=== PATIENT | female | born 1980 | race Caucasian/White ===

== ENCOUNTER 2017-09-06 14:22 | Emergency (ER) | payer OTHER ==
--- NOTE | 2017-09-06 15:15 | UC ---
Throat Pain/Nasal Bg HPI - HPI Summary HPI Summary: 37 y/o female presents to the urgent care c/o sore throat and productive cough, sinus congestion and pain for the past 10 days. Pt reports symptoms started with common cold symptoms, however sore throat became worse for the past 2 day. Sinus congestion has a green nasal discharge, associated with CARTER and postnasal drip. Pain with swallowing is 8/10. Pt has been with chills, but denies fever, abdominal pain, chest pain, N/V/D. She has been taking Nyquill and Dayquill to alleviate symptoms. - History of Current Complaint Stated Complaint: COUGH/ST Time Seen by Provider: 09/06/17 15:14 Hx Obtained From: Patient ?: No Onset/Duration: Gradual Onset, Lasting Weeks - 10 days, Still Present, Worse Since - 2 days Severity: Moderate Pain Intensity: 8 Pain Scale Used: 0-10 Numeric Cough: Sputum Appears - green Associated Signs & Symptoms: Positive: Sinus Discomfort, Nasal Discharge - Epiglottits Risk Factors Epiglottis Risk Factors: Negative - Allergies/Home Medications Allergies/Adverse Reactions: Allergies Allergy/AdvReac Type Severity Reaction Status Date / Time Penicillins Allergy Hives Verified 09/06/17 15:30 Home Medications: Home Medications Dextromethorphan-Phenylephrine [Daytime Multi-Symptom Col 10-5-325 mg/15Ml] 1 liq PO DAILY PRN 09/06/17 [History Confirmed 09/06/17] PMH/Surg Hx/FS Hx/Imm Hx Previously Healthy: Yes - Pt denies PMHX - Surgical History Surgery Procedure, Year, and Place: B/L tonsilectomy - Family History Known Family History: Positive: Diabetes - Social History Occupation: Employed Full-time Lives: With Family Review of Systems Constitutional: Negative Skin: Negative Eyes: Negative ENT: Sore Throat, Nasal Discharge, Sinus Congestion, Sinus Pain/Tenderness Respiratory: Cough - productive Cardiovascular: Negative Gastrointestinal: Negative Genitourinary: Negative Motor: Negative Neurovascular: Negative Musculoskeletal: Negative Neurological: Headache Psychological: Negative Is Patient Immunocompromised?: No All Other Systems Reviewed And Are Negative: Yes Physical Exam Triage Information Reviewed: Yes - Additional Comments VITAL SIGNS: Reviewed. GENERAL: Patient is a well developed and nourished female who is sitting comfortable in the examining table. Patient is not in any acute respiratory distress. HEAD AND FACE: No signs of trauma. No ecchymosis, hematomas or skull depressions. Positive maxillary and frontal sinus tenderness on palpation with yellowish nasal discharge. EYES: PERRLA, EOMI x 2, No injected conjunctiva, no nystagmus. No photophobia. EARS: Hearing grossly intact. Ear canals and tympanic membranes are within normal limits. MOUTH: Positive pharynx with erythema, no exudates, mild palatal petechiae. no tonsils. Uvula in midline with erythema. Nose: edematous, erythematous nasal mucosa NECK: Supple, trachea is midline, Positive anterior cervical lymphadenopathy, no JVD, no carotid bruit, no c-spine tenderness, neck with full ROM. No meningeal signs, no Kernig's or brudzinskis signs. CHEST: Symmetric, no tenderness at palpation LUNGS: Clear to auscultation bilaterally. No wheezing or crackles. CVS: Regular rate and rhythm, S1 and S2 present, no murmurs or gallops appreciated. ABDOMEN: Soft, non-tender. No signs of distention. No rebound no guarding, and no masses palpated. Bowel sounds are normal. EXTREMITIES: FROM in all major joints, no edema, no cyanosis or clubbing. NEURO: Alert and oriented x 3. No acute neurological deficits. Speech is normal and follows commands. SKIN: Dry and warm Throat Pain/Nasal Course/Dx - Course Course Of Treatment: 37 y/o female presents to the urgent care c/o sore throat and productive cough, sinus congestion and pain for the past 10 days. Pt reports symptoms started with common cold symptoms, however sore throat became worse for the past 2 days. Sinus congestion has a green nasal discharge, associated with CARTER and postnasal drip. Pain with swallowing is 8/10. Pt has been with chills, but denies fever, abdominal pain, chest pain, N/V/D. She has been taking Nyquill and Dayquill to alleviate symptoms. Hx obtained. Pt with sinusitis and uvulitis on examiantion. Rapid strep ordered: result: negative. Pt PCP allergic. Pt with 10 days of symptoms getting worse. Pt Rx Z-lolis PO and flonase nasal spray. Discharge instructions explained to Pt. Advised to Return to the clinic or PCP if symptoms do not improve.Pt understood and agreed with plan of care. - Differential Dx/Diagnosis Differential Diagnosis/HQI/PQRI: Influenza, Laryngitis, Otitis Media, Peritonsillar Abscess, Pharyngitis, Sinusitis, Tonsillitis, URI Provider Diagnoses: 1- Acute bacterial sinusitis. 2- Uvulitis Discharge - Discharge Plan Condition: Stable Disposition: HOME Prescriptions: Azithromyxin LOLIS (NF) [Z-Lolis (Zithromax) 250 mg tabs #6] 2 tab PO .TODAY, THEN 1 DAILY #6 tab Fluticasone NASAL SPRAY 50MCG* [Flonase NASAL SPRAY 50MCG*] 2 spray BOTH NARES DAILY #1 btl Ibuprofen TAB* [Motrin TAB* 800 MG] 800 mg PO Q6H PRN #20 tab PRN Reason: Pain Patient Education Materials: Sinusitis (ED), Uvulitis (ED) Referrals: [facility] [Outside] - If Needed Additional Instructions: 1- Please take the full course of the antibiotic to avoid resistance. 2-Please take ibuprofen PO q6-8hrs prn as instructed after meals to alleviate pain and swelling. Increase fluid intake, eat well, rest and avoid strenuous exercise 3-Use Flonase as directed to help drain fluid. Also buy saline drops to clear sinuses. 4-If symptoms do not improve or worsen please return to the urgent care or f/u with your PCP for further evaluation and treatment.
== END 2017-09-06 16:06 | disposition home or self-care (01) ==
LOC: UCCORT 14:22
DX: J01.90 Acute sinusitis, unspecified (principal); K12.2 Cellulitis and abscess of mouth; Z88.0 Allergy status to penicillin
CPT/HCPCS: 87651; 99201; G0463